=== PATIENT | female | born 1965 | race Caucasian/White ===

== ENCOUNTER 2017-06-28 12:58 | Emergency (ER) | payer OTHER ==
[~2017-06-28] VITALS: Ht 157.5 cm; Wt 90.7 kg
[2017-06-28] MEDS ORDERED: OXYBUTYNIN 5 MG5 M2 PO (13:17)
[2017-06-28] MEDS ORDERED: CHLORTHALIDONE25 MG PO (13:18)
[2017-06-28] MEDS ORDERED: METFORMIN HCL500 MG PO (13:18)
[2017-06-28] MEDS ORDERED: LISINOPRIL10 MG PO (13:18)
[2017-06-28] MEDS ORDERED: ESTRADIOL 1 MG T1 M1 PO (13:18)
[2017-06-28] MEDS ORDERED: LIPITOR40 MG PO (13:19)
[2017-06-28] MEDS ORDERED: COREG25 MG PO (13:19)
[2017-06-28] MEDS ORDERED: TRICOR145 MG PO (13:19)
[2017-06-28] MEDS ORDERED: NEXIUM40 MG PO (13:19)
[2017-06-28] MEDS ORDERED: ETODOLAC 400 M400 MG PO (13:19)
[2017-06-28] MEDS ORDERED: B12INJ IM (13:20)
[2017-06-28] MEDS ORDERED: VITAMINC500 PO (13:20)
[2017-06-28] MEDS ORDERED: VITAMIN D2000 UNIT PO (13:20)
[2017-06-28] MEDS ORDERED: CELEXA40 MG PO (13:20)
[2017-06-28] MEDS ORDERED: IRON325 PO (13:20)
[2017-06-28] MEDS ORDERED: TRAMADOL 50 MG50 MG PO (13:21)
[2017-06-28] MEDS ORDERED: TUMS PO (13:21)
[2017-06-28] MEDS ORDERED: MULTI VITAMIN1 EACH PO (13:21)
[2017-06-28] MEDS ORDERED: DOXYCYCLINE 10100 MG PO (13:35)
[2017-06-28 13:55] VITALS: BP 140/71
== END 2017-06-28 13:56 | disposition home or self-care (01) ==
LOC: M.ERS 12:58
DX: S01.352A Open bite of left ear, initial encounter (principal); W54.0XXA Bitten by dog, initial encounter; Y93.89 Activity, other specified; Y92.89 Other specified places as the place of occurrence of the external cause; Y99.8 Other external cause status; I10 Essential (primary) hypertension; E78.00 Pure hypercholesterolemia, unspecified; K21.9 Gastro-esophageal reflux disease without esophagitis; E11.9 Type 2 diabetes mellitus without complications; Z90.710 Acquired absence of both cervix and uterus